=== PATIENT | female | born 1990 | race Two or more races ===

== ENCOUNTER 2020-10-31 22:09 | Emergency (ER) | payer OTHER ==
[~2020-10-31] VITALS: Ht 160 cm; Wt 84.8 kg
[2020-10-31] MEDS ORDERED: PRENATABS FA T1 EACH (22:46)
== END 2020-11-01 02:04 | disposition home or self-care (01) ==
LOC: ER 22:09
DX: T63.441A Toxic effect of venom of bees, accidental (unintentional), initial encounter (principal); Y92.89 Other specified places as the place of occurrence of the external cause

== ENCOUNTER 2020-12-08 15:15 | Inpatient (IN) | payer OTHER ==
[~2020-12-08] VITALS: Ht 160 cm; Wt 89.4 kg
[~2020-12-08 15:15] MED LIST: PRENATABS FA T1 EACH
== END 2020-12-21 14:03 | disposition home or self-care (01) | DRG 807 ==
LOC: OB/GYN 12-19 07:32 → LDR 12-19 07:32 → OB/GYN 12-19 13:18
PROVIDERS: ADMIT Obstetrics & Gynecology; ATTEND Obstetrics & Gynecology
PROC: 10E0XZZ Delivery of Products of Conception, External Approach (ICD-10-PCS; principal; 2020-12-19)
PROC: 4A1HXFZ Monitoring of Products of Conception, Cardiac Rhythm, External Approach (ICD-10-PCS; 2020-12-19)
DX: O80 Encounter for full-term uncomplicated delivery (principal); Z37.0 Single live birth; Z3A.39 39 weeks gestation of pregnancy

== ENCOUNTER 2020-12-19 02:41 | Outpatient (CLI) | payer OTHER | END 2020-12-19 07:31 | disposition still patient (30) | LOC: OBS/DEL 02:41 | PROVIDERS: ATTEND Obstetrics & Gynecology | DX: O47.1 False labor at or after 37 completed weeks of gestation (principal); Z20.822 Contact with and (suspected) exposure to COVID-19 ==